=== PATIENT | female | born 1990 | race Two or more races ===

== ENCOUNTER → 2020-03-18 | Outpatient (CLI) | payer OTHER | END | disposition home or self-care (01) | LOC: PRENATAL 11:30 | PROVIDERS: ATTEND Obstetrics & Gynecology Maternal & Fetal Medicine | DX: Z36.89 Encounter for other specified antenatal screening (principal); O36.80X1 Pregnancy with inconclusive fetal viability, fetus 1; Z3A.11 11 weeks gestation of pregnancy ==

== ENCOUNTER → 2020-06-15 | Outpatient (CLI) | payer OTHER | END | disposition home or self-care (01) | LOC: PRENATAL 13:00 | PROVIDERS: ATTEND Obstetrics & Gynecology Maternal & Fetal Medicine | DX: O35.0XX1 Maternal care for (suspected) central nervous system malformation in fetus, fetus 1 (principal); O35.3XX1 Maternal care for (suspected) damage to fetus from viral disease in mother, fetus 1; O98.512 Other viral diseases complicating pregnancy, second trimester; Z36.89 Encounter for other specified antenatal screening; Z3A.23 23 weeks gestation of pregnancy ==

== ENCOUNTER 2020-09-26 13:04 | Inpatient (IN) | payer OTHER ==
[~2020-09-26] VITALS: Ht 154.9 cm; Wt 68.0 kg
[2020-09-26] MEDS ORDERED: PRENATAL CAPLE1 EAC1 PO (13:41)
== END 2020-09-28 15:21 | disposition home or self-care (01) | DRG 807 ==
LOC: SURG-SUITE 13:04 → LDR 13:04 → OB/GYN 16:24 → SURG-SUITE 16:26
PROVIDERS: ADMIT Obstetrics & Gynecology; ATTEND Obstetrics & Gynecology
PROC: 10E0XZZ Delivery of Products of Conception, External Approach (ICD-10-PCS; principal; 2020-09-26)
PROC: 4A1HXFZ Monitoring of Products of Conception, Cardiac Rhythm, External Approach (ICD-10-PCS; 2020-09-26)
PROC: 10907ZC Drainage of Amniotic Fluid, Therapeutic from Products of Conception, Via Natural or Artificial Opening (ICD-10-PCS; 2020-09-26)
PROC: 3E033VJ Introduction of Other Hormone into Peripheral Vein, Percutaneous Approach (ICD-10-PCS; 2020-09-26)
DX: O41.03X0 Oligohydramnios, third trimester, not applicable or unspecified (principal); Z37.0 Single live birth; Z3A.38 38 weeks gestation of pregnancy; Z20.822 Contact with and (suspected) exposure to COVID-19

== ENCOUNTER 2022-02-15 12:42 | Inpatient (IN) | payer OTHER ==
[~2022-02-15] VITALS: Ht 154.9 cm; Wt 65.8 kg
[~2022-02-15 12:42] MED LIST: PRENATAL CAPLE1 EAC1 PO
== END 2022-02-17 15:50 | disposition home or self-care (01) | DRG 807 ==
LOC: LDR 12:42 → OB/GYN 17:30
PROVIDERS: ADMIT Obstetrics & Gynecology; ATTEND Obstetrics & Gynecology
PROC: 10E0XZZ Delivery of Products of Conception, External Approach (ICD-10-PCS; principal; 2022-02-15)
PROC: 4A1HXCZ Monitoring of Products of Conception, Cardiac Rate, External Approach (ICD-10-PCS; 2022-02-15)
DX: O60.14X0 Preterm labor third trimester with preterm delivery third trimester, not applicable or unspecified (principal); Z37.0 Single live birth; Z3A.36 36 weeks gestation of pregnancy; Z20.822 Contact with and (suspected) exposure to COVID-19

== ENCOUNTER 2025-04-03 17:22 | Emergency (ER) | payer OTHER ==
[~2025-04-03] VITALS: Ht 154.9 cm; Wt 55.3 kg
[2025-04-03] MEDS ORDERED: 0.9 % SODIUM CHLORIDE 1,000 ML IV SCH (18:00)
[2025-04-03] MEDS ORDERED: FAMOTIDINE/PF 20 MG/2 ML VIAL IV ONE (18:00)
[2025-04-03] MEDS ORDERED: ACETAMINOPHEN 500 MG GEL..CAP PO ONE ×2 (18:00→18:37)
[2025-04-03] MEDS ORDERED: FAMOTIDINE/PF 20 MG/2 ML VIAL ONE (18:37)
[2025-04-03] MEDS ORDERED: ONDANSETRON HCL 2 MG/ML VIAL ONE (19:22)
[2025-04-03] MEDS ORDERED: ONDANSETRON HCL 2 MG/ML VIAL IV ONE (20:00)
[2025-04-03 20:17] LABS: BASO % 0.2 % (0.1-1.2); EOS # 0.23 (0.04-0.54); EOS % 1.8 % (0.7-7.0); LYMPH # 3.50 (1.18-3.74); LYMPH % 27.3 % (19.3-53.1); MEAN PLATELET VOLUME 10.00 fl (9.4-12.4); MONO # 1.05 (0.24-0.82); MONO % 8.2 % (4.7-12.5); NEUT # 7.96 (1.56-6.13); NEUT % 62.1 % (34.0-71.1); RED CELL DISTRIBUTION WIDTH 11.9 % (11.6-14.4)
[2025-04-03 21:18] LABS: ALT/SGPT 18.0 U/L (12-78); AST/SGOT 11.0 U/L (15-37); BILIRUBIN TOTAL 0.37 mg/dL (0.3-1.2); BUN CREA RATIO 13.0 (7.0-25.0); CREATININE SERUM 0.78 mg/dL (0.55-1.02); GFR 84.54; GLOBULINA 4.3 G/DL (2.4-3.5); GLUCOSE FASTING 82.0 mg/dL (65-100); OSMOLALITY SERUM 276.0 MOSM/KG (275-295)
[2025-04-03 21:33] LABS: URINE APPEARANCE Cloudy; URINE BILIRRUBIN Negative (NEGATIVE); URINE BLOOD Large; URINE COLOR Yellow; URINE GLUCOSE Negative (NEGATIVE); URINE KETONE 15 (NEGATIVE); URINE LEUKOCYTE Large; URINE NITRATE Positive; URINE PROTEIN 30 (NEGATIVE); URINE UROBILINOGEN 1.0 E.U./dl
[2025-04-03 21:38] LABS: URINE EPITHELIAL CELLS 56.9 uL (0.0-38.8); URINE RBC 145.0 uL (0.0-20.8); URINE WBC 578.5 uL (0.0-23.2)
[2025-04-03 21:44] LABS: TYPE CELLS SQUAMOUS; URINE BACTERIA > 9821.5 uL (0.0-1933); URINE CAST 0.87 uL (0.0-1.40)
[2025-04-03 21:55] LABS: COVID-19 AG NEGATIVE (NEGATIVE)
[2025-04-03] MEDS ORDERED: CEFTRIAXONE SODIUM 1,000 MG VIAL ONE (22:01)
[2025-04-03] MEDS ORDERED: METOCLOPRAMIDE10 MG PO (22:12)
[2025-04-03] MEDS ORDERED: PEPCID AC20 MG PO (22:12)
[2025-04-03] MEDS ORDERED: BACTRIM DS TAB1 EACH PO (22:12)
[2025-04-03] MEDS ORDERED: CEFTRIAXONE SODIUM 1,000 MG VIAL IV ONE (22:15)
== END 2025-04-03 22:41 | disposition home or self-care (01) ==
LOC: ER 17:22
PROVIDERS: Student in an Organized Health Care Education/Training Program
DX: N39.0 Urinary tract infection, site not specified (principal); B34.9 Viral infection, unspecified; Z20.822 Contact with and (suspected) exposure to COVID-19